=== PATIENT | male | born 1975 | race Caucasian/White ===

== ENCOUNTER 2022-04-27 13:48 | Emergency (ER) | payer BC, MEDICAID ==
[2022-04-27] MEDS: Tetracaine HCl/PF 0.5% 4 ML Bottle EYELF ONE (15:59)
[2022-04-27] MEDS: Fluorescein 1 MG Ophth Strip EYELF ONE (15:59)
== END 2022-04-27 16:20 | disposition home or self-care (01) ==
LOC: VM.ED 13:48
DX: S05.8X2A Other injuries of left eye and orbit, initial encounter (principal); I10 Essential (primary) hypertension; W22.09XA Striking against other stationary object, initial encounter; Y99.0 Civilian activity done for income or pay
CPT/HCPCS: 99283; J3490